=== PATIENT | female | born 1990 ===

== ENCOUNTER 2024-03-29 08:31 | Emergency (ER) | payer SELFPAY ==
[2024-03-29] MEDS: Ondansetron 4 MG/2 ML SDV IVPUSH ONE ×3 (08:47→13:53)
[2024-03-29 08:55] LABS: BASOPHILS ABSOLUTE AUTO 0.04 K/uL (0.00-0.20); BASOPHILS PERCENT AUTO 0.2 % (0.0-1.0); HEMATOCRIT 34.9 % (37.0-47.0); IMMATURE GRAN ABSOLUTE AUTO 0.22 K/uL (0.00-0.05); IMMATURE GRAN PERCENT AUTO 0.9 % (0.0-0.4); LYMPHOCYTES ABSOLUTE AUTO 1.82 K/uL (1.00-4.80); LYMPHOCYTES PERCENT AUTO 7.8 % (24.0-44.0); MEAN CORPUSCULAR HEMOGLOBIN 32.7 pg (28.0-32.0); MEAN CORPUSCULAR HGB CONC 34.4 g/dL (32.0-36.0); MEAN CORPUSCULAR VOLUME 95.1 fL (83.0-99.0); MEAN PLATELET VOLUME 9.1 fL (9.4-12.3); MONOCYTES ABSOLUTE AUTO 0.45 K/uL (0.00-0.80); MONOCYTES PERCENT AUTO 1.9 % (0.0-8.0); NEUTROPHILS ABSOLUTE AUTO 20.95 K/uL (1.80-7.70); NEUTROPHILS PERCENT AUTO 89.2 % (41.0-71.0); PLATELET COUNT,PLT 411 K/uL (150-400); RED BLOOD CELL COUNT 3.67 M/uL (4.10-5.30); WHITE BLOOD CELL COUNT,WBC 23.48 K/uL (3.9-11.3)
[2024-03-29] MEDS: Diphtheria,Pertussis(Acell),Tetanus Vaccine 0.5 ML Syringe IM ONE (09:13)
[2024-03-29] MEDS: Piperacillin/Tazobactam 4.5 GM in Sodium Chloride 0.9% 100 ML IV STA (09:13)
[2024-03-29] MEDS: Sodium Chloride 0.9% 10 ML Syringe FLUSH PRN (09:14)
[2024-03-29] MEDS: Sodium Chloride 0.9% 2.5 ML Syringe FLUSH PRN (09:14)
[2024-03-29] MEDS: Sodium Chloride 0.9% 1,000 ML IV SCH ×2 (09:14→09:45)
[2024-03-29 09:22] LABS: A/G RATIO 1.2 (0.9-1.6); ACETAMINOPHEN <2.0 ug/mL; ALANINE AMINOTRANSFERASE,ALT 111 IU/L (14-63); ALBUMIN 4.1 g/dL (3.4-5.0); ALKALINE PHOSPHATASE 84 U/L (46-116); ASPARTATE AMNIOTRANSFERASE,AST 74 IU/L (15-37); BILIRUBIN TOTAL 0.3 mg/dL (0.2-1.0); BLOOD UREA NITROGEN,BUN 14 mg/dL (7.0-18.0); CALCIUM 8.8 mg/dL (8.5-10.1); CARBON DIOXIDE,CO2 20.9 mmol/L (21.0-32.0); CHLORIDE,CL 104 mmol/L (98-107); CREATININE 1.1 mg/dL (0.6-1.0); EST CRCL DRUG DOSING (CG) 62.23 mL/min; ETHANOL BLOOD MEDICAL 281 mg/dL; GLUCOSE RANDOM 148 mg/dL (74-106); LIPASE 25 U/L (16-77); POTASSIUM,K 3.9 mmol/L (3.5-5.1); PROTEIN TOTAL,TP 7.5 g/dL (6.4-8.2); SALICYLATE 1.6 mg/dL (0.0-20.0); SODIUM,NA 140 mmol/L (136-145)
[2024-03-29 09:23] LABS: ESTIMATED GFR 68 mL/min (>60)
[2024-03-29 10:11] LABS: LACTIC ACID 3.9 mmol/L (0.4-2.0)
[2024-03-29] MEDS: Iopamidol 755 MG/ML 500 ML Multipack Bottle IVPUSH STA (10:17)
[2024-03-29] MEDS: VANCOmycin 1.25 GM in Sodium Chloride 0.9% 250 ML IV ONE (10:28)
[2024-03-29] MEDS: Midazolam 1 MG/ML 2 ML SDV IVPUSH ONE ×2 (11:26→12:21)
[2024-03-29] MEDS: Lidocaine 1% 10 ML MDV INJECT ONE (11:26)
[2024-03-29 11:27] LABS: APPEARANCE,URINE CLEAR; BILIRUBIN,URINE NEGATIVE (NEGATIVE); COLOR,URINE YELLOW; GLUCOSE,URINE NEGATIVE (NEGATIVE); KETONES,URINE TRACE mg/dL (NEGATIVE); LEUKOCYTE ESTERASE,URINE NEGATIVE (NEGATIVE); NITRITE,URINE NEGATIVE (NEGATIVE); OCCULT BLOOD,URINE NEGATIVE (NEGATIVE); PH,URINE 5.5 (5.0-8.0); PROTEIN,URINE NEGATIVE (NEGATIVE); UROBILINOGEN,URINE 0.2 EU/dL (<2.0)
[2024-03-29 11:38] LABS: BACTERIA,URINE NOT SEEN (NEGATIVE); EPITHELIAL CELLS,URINE RARE (NONE-FEW); RBC,URINE 0-1 (0-2/HPF); WBC,URINE 0-1 (0-5/HPF)
[2024-03-29] MEDS: HYDROmorphone 0.5 MG/0.5 ML Syringe IVPUSH ONE ×2 (12:02→12:18)
[2024-03-29] MEDS: Lidocaine 2% 5 ML SDV INJECT ONE (12:07)
[2024-03-29] MEDS: Lidocaine 2% 5 ML SDV ONE (12:14)
[2024-03-29] MEDS: Midazolam 1 MG/ML 2 ML SDV ONE (12:35)
[2024-03-29] MEDS: HYDROmorphone 0.5 MG/0.5 ML Syringe ONE (12:35)
[2024-03-29] MEDS: Morphine 4 MG/ML Syringe IVPUSH ONE (12:50)
[2024-03-29] MEDS: Morphine 4 MG/ML Syringe ONE (12:55)
[2024-03-29 13:22] LABS: HEMATOCRIT 29.2 % (37.0-47.0); HEMOGLOBIN 9.9 g/dL (12.0-16.0); MEAN CORPUSCULAR HEMOGLOBIN 32.9 pg (28.0-32.0); MEAN CORPUSCULAR HGB CONC 33.9 g/dL (32.0-36.0); PLATELET COUNT,PLT 331 K/uL (150-400); RED BLOOD CELL COUNT 3.01 M/uL (4.10-5.30); WHITE BLOOD CELL COUNT,WBC 20.75 K/uL (3.9-11.3)
[2024-03-29] MEDS ORDERED: HYDROmorphone 0.5 MG/0.5 ML Syringe IVPUSH ONE (13:45)
[2024-03-29] MEDS: HYDROmorphone 1 MG/ML Syringe IVPUSH STA (13:53)
== END 2024-03-29 16:51 ==
LOC: MW.ED 08:31
DX: A41.9 Sepsis, unspecified organism (principal); R65.21 Severe sepsis with septic shock; J94.2 Hemothorax; S22.31XA Fracture of one rib, right side, initial encounter for closed fracture; J90 Pleural effusion, not elsewhere classified; Z23 Encounter for immunization; X58.XXXA Exposure to other specified factors, initial encounter
CPT/HCPCS: 32551; 36415; 70450; 71045; 71260; 72125; 74177; 80053; 80143; 80179; 80307; 81001; 83605; 83690; 84484; 84703; 85025; 85027; 86900; 86901; 87040; 90471; 90715; 93005; 96361; 96365; 96367; 96375; 96376; 99285; J1171; J2250; J2270; J2405; J2543; J3360; J3371; J3490; J7030; J7050; Q9967; 99284

== ENCOUNTER 2025-02-23 20:56 | Emergency (ER) | payer SELFPAY | END 2025-02-23 22:55 | LOC: MW.ED 20:56 | DX: S80.02XA Contusion of left knee, initial encounter (principal); S20.219A Contusion of unspecified front wall of thorax, initial encounter; Y04.2XXA Assault by strike against or bumped into by another person, initial encounter | CPT/HCPCS: 70450; 71045; 72125; 73562; 99284; A9270; 99283 ==